=== PATIENT | female | born 1945 | race Caucasian/White ===

== ENCOUNTER 2018-02-14 12:15 | Inpatient (IN) | payer OTHER, MEDICAID ==
[2018-02-14 12:50] LABS: ADD MAN DIFF? NO
[2018-02-14 12:52] LABS: AADO2 Arterial 336.5 mmHg (7.0-24.0); Allen Test ACCEPTAB; Arterial Base Excess -1.3 mmol/L (-3.0-3); Arterial Blood Gas Oxygen Sat 98.7 mmHG (95.0-100.0); Arterial COHb 1.7 % (0.0-3.0); Arterial Fraction of Oxyhgb 96.7 % (93.0-99.0); Arterial HCO3 33.2 mmol/L (22.0-26.0); Arterial MetHb 0.3 % (0.0-1.5); Arterial Total Hemglobin 11.7 g/dl (12.0-18.0); Arterial pCO2 139.3 mmhg (35-45); Blood Gas IEPAP 15; Blood Gas PS 20/5; MODE MASK - BIPAP; Site Right Radial
[2018-02-14 12:56] LABS: ABNORMAL IP MESSAGE 1; BASOPHILS % 0.2 % (0.0-2.0); EOSINOPHILS % 0.2 % (0.0-7.0); HEMATOCRIT 43.5 % (37.0-47.0); HEMOGLOBIN 11.9 g/dl (12.0-16.0); LYMPHOCYTES # 0.6 10^3/ul (0.8-2.9); LYMPHOCYTES % 12.5 % (15.0-51.0); MEAN CORPUSCULAR HGB CONC 27.4 g/dl (32.0-37.0); MEAN CORPUSCULAR VOLUME 106.1 fl (82.0-101.0); MEAN PLATELET VOLUME 10.7 fl (7.4-10.4); MONOCYTE # 0.3 10^3/ul (0.3-0.9); MONOCYTES % 5.7 % (0.0-11.0); NEUTROPHIL # 3.9 10^3/ul (1.6-7.5); NEUTROPHILS % 80.8 % (39.0-77.0); NUCLEATED RED BLOOD CELLS% 0.6 /100WBC (0.0-0.0); PLATELET COUNT 202 10^3/UL (140-415); RED CELL DISTRIBUTION WIDTH 13.2 % (11.5-14.5)
[2018-02-14 12:56] LABS: WHITE BLOOD COUNT 4.9 10^3/ul (4.8-10.8)
[2018-02-14] MEDS: SODIUM CHLORIDE 0.9% 1L BAG IV* (13:05)
[2018-02-14] MEDS: LEVOFLOXACIN 750MG/D5W (PMX) 150 ML IVPB (13:05)
[2018-02-14 13:08] LABS: POSITIVE DIFF @See below
[2018-02-14] MEDS: SOD CHLORIDE 0.9% 1,000 ML IV (13:10)
[2018-02-14 13:12] LABS: INR 0.84; PARTIAL THROMBOPLASTIN TIME 24.3 Sec (23.0-35.0); PROTIME 11.6 Sec (11.9-14.9); PT RATIO 0.9
[2018-02-14 13:16] LABS: LACTIC ACID 0.9 mmol/L (0.5-2.0)
[2018-02-14 13:16] LABS: ALANINE AMINOTRANSFERASE 20 IU/L (13-69); ALBUMIN 3.9 g/dl (3.3-4.9); ALKALINE PHOSPHATASE 72 IU/L (42-121); AMYLASE 69 U/L (11-123); ANION GAP 6 (5-13); ASPARTATE AMINO TRANSFERASE 16 IU/L (15-46); BILIRUBIN,INDIRECT 0.4 mg/dl (0-1.1); BILIRUBIN,TOTAL 0.4 mg/dl (0.2-1.3); BLOOD UREA NITROGEN 50 mg/dl (7-20); CALCIUM 9.1 mg/dl (8.4-10.2); CARBON DIOXIDE 36 mmol/L (21-31); CHLORIDE 97 mmol/L (97-110); GLUCOSE 170 mg/dl (70-220); LIPASE 44 U/L (23-300); POTASSIUM 5.6 mmol/L (3.5-5.1); SODIUM 139 mmol/L (135-144); TOTAL PROTEIN 6.5 g/dl (6.1-8.1)
[2018-02-14 13:27] LABS: TROPONIN-I 0.063 ng/ml (0.000-0.120)
[2018-02-14 13:37] LABS: Allen Test ACCEPTAB; Arterial Base Excess 3.6 mmol/L (-3.0-3); Arterial Blood Gas Oxygen Sat 86.6 mmHG (95.0-100.0); Arterial COHb 2.1 % (0.0-3.0); Arterial Fraction of Oxyhgb 84.5 % (93.0-99.0); Arterial HCO3 34.6 mmol/L (22.0-26.0); Arterial MetHb 0.3 % (0.0-1.5); Arterial Total Hemglobin 11.3 g/dl (12.0-18.0); Blood Gas IEPAP 20/5; Blood Gas PS 15; MODE MASK - BIPAP; Site Right Radial
[2018-02-14 13:48] LABS: ADD UMIC YES; UR ASCORBIC ACID 40 mg/dL (NEGATIVE); UR BACTERIA FEW /HPF (NONE SEEN); UR BILIRUBIN (Dip) NEGATIVE (NEGATIVE); UR BLOOD (Dip) NEGATIVE (NEGATIVE); UR CLARITY CLOUDY (CLEAR); UR COLOR YELLOW (YELLOW); UR GLUCOSE (Dip) NEGATIVE (NEGATIVE); UR KETONES (Dip) NEGATIVE (NEGATIVE); UR LEUKOCYTE ESTERASE (Dip) 2+ Leu/ul (NEGATIVE); UR MUCUS FEW /HPF (NONE SEEN); UR NITRITE (Dip) NEGATIVE (NEGATIVE); UR RBC 1 /HPF (0-5); UR SPECIFIC GRAVITY (Dip) 1.018 (1.003-1.030); UR TOTAL PROTEIN (Dip) 2+ mg/dl (NEGATIVE); UR UROBILINOGEN (Dip) 2+ mg/dL (NEGATIVE); UR WBC 28 /HPF (0-5)
[2018-02-14] MEDS: FUROSEMIDE 40 MG INJ IV (14:23)
[2018-02-14] MEDS: VANCOMYCIN 1 GM (PMX) 250 ML IVPB (14:23)
[2018-02-14 14:45] LABS: AADO2 Arterial 53.9 mmHg (7.0-24.0); Allen Test ACCEPTAB; Arterial Base Excess -1.2 mmol/L (-3.0-3); Arterial Blood Gas Oxygen Sat 92.1 mmHG (95.0-100.0); Arterial COHb 1.8 % (0.0-3.0); Arterial Fraction of Oxyhgb 90.2 % (93.0-99.0); Arterial HCO3 27.7 mmol/L (22.0-26.0); Arterial MetHb 0.3 % (0.0-1.5); Arterial Total Hemglobin 11.1 g/dl (12.0-18.0); Arterial pCO2 69.9 mmhg (35-45); Blood Gas IEPAP 20/5; Blood Gas PS 15; MODE MASK - BIPAP; Site Right Radial
[2018-02-14] MEDS ORDERED: ONDANSETRON 4 MG INJ IV ×2 (15:30→16:30)
[2018-02-14 15:47] LABS: B-TYPE NATRIURETIC PEPTIDE 44800 PG/ML (0-125)
[2018-02-14] MEDS ORDERED: HEPARIN 5,000 UNIT/0.5 ML VIAL SC (16:30)
[2018-02-14] MEDS ORDERED: GLUCOSE GEL 15 GRAM TUBE BUCCAL (16:30)
[2018-02-14] MEDS ORDERED: DEXTROSE 50% 50 ML SYRINGE IV ×2 (16:30)
[2018-02-14] MEDS ORDERED: ACETAMINOPHEN 325 MG TAB PO ×2 (16:30)
[2018-02-14] MEDS: HEPARIN 5,000 UNIT/0.5 ML VIAL SC (16:30)
[2018-02-14] MEDS ORDERED: GLUCOSE GEL 15 GRAM TUBE PO ×2 (16:30)
[2018-02-14] MEDS: BISACODYL 10 MG SUPP PR (16:30)
[2018-02-14] MEDS ORDERED: GLUCAGON 1 MG INJ IM (16:30)
[2018-02-14] MEDS ORDERED: NACL 0.9% 3 ML SYG IV (16:30)
[2018-02-14 17:46] LABS: LACTIC ACID 1.3 mmol/L (0.5-2.0)
[2018-02-14] MEDS: INSULIN ASPART [NOVOLOG] 3 ML PEN SC ×2 (18:00→20:29)
[2018-02-14] MEDS: ALBUTEROL/IPRATROPIUM (NEB) 3 ML AMP INH (19:26)
[2018-02-14] MEDS: ALLOPURINOL 100 MG TAB PO (20:29)
[2018-02-14] MEDS: ATORVASTATIN 40 MG TAB PO (20:29)
[2018-02-14] MEDS ORDERED: LABETALOL HCL 20MG INJ IV (21:30)
[2018-02-14] MEDS: CILOSTAZOL 100 MG TAB PO (22:28)
[2018-02-14] MEDS: INSULIN GLARGINE [LANTus] (100 UNITS/ML) SYG SC (22:48)
[2018-02-15] MEDS: ACETAMINOPHEN 325 MG TAB PO (00:59)
[2018-02-15] MEDS: ALBUTEROL/IPRATROPIUM (NEB) 3 ML AMP INH ×4 (01:21→19:48)
[2018-02-15] MEDS: ACCU-CHEK XX (02:00)
[2018-02-15 05:36] LABS: ADD MAN DIFF? NO
[2018-02-15 05:39] LABS: WHITE BLOOD COUNT 6.1 10^3/ul (4.8-10.8)
[2018-02-15 05:39] LABS: BASOPHILS % 0.2 % (0.0-2.0); EOSINOPHILS # 0.1 10^3/ul (0.0-0.5); EOSINOPHILS % 1.5 % (0.0-7.0); HEMATOCRIT 33.4 % (37.0-47.0); HEMOGLOBIN 9.7 g/dl (12.0-16.0); LYMPHOCYTES # 0.8 10^3/ul (0.8-2.9); LYMPHOCYTES % 13.6 % (15.0-51.0); MEAN CORPUSCULAR VOLUME 99.7 fl (82.0-101.0); MEAN PLATELET VOLUME 10.7 fl (7.4-10.4); MONOCYTE # 0.3 10^3/ul (0.3-0.9); MONOCYTES % 5.4 % (0.0-11.0); NEUTROPHIL # 4.8 10^3/ul (1.6-7.5); PLATELET COUNT 168 10^3/UL (140-415); RED BLOOD COUNT 3.35 10^6/ul (4.20-5.40)
[2018-02-15 06:06] LABS: B-TYPE NATRIURETIC PEPTIDE 32900 PG/ML (0-125)
[2018-02-15 06:20] LABS: ANION GAP 8 (5-13); BLOOD UREA NITROGEN 48 mg/dl (7-20); CALCIUM 9.1 mg/dl (8.4-10.2); CARBON DIOXIDE 36 mmol/L (21-31); CHLORIDE 97 mmol/L (97-110); CREATININE 1.15 mg/dl (0.44-1.00); GLUCOSE 112 mg/dl (70-220); SODIUM 141 mmol/L (135-144)
[2018-02-15] MEDS: INSULIN ASPART [NOVOLOG] 3 ML PEN SC ×4 (08:00→21:00)
[2018-02-15] MEDS ORDERED: HEPARIN 5,000 UNIT/0.5 ML VIAL ×2 (09:16→21:31)
[2018-02-15] MEDS: ALLOPURINOL 100 MG TAB PO ×2 (09:26→23:29)
[2018-02-15] MEDS: FERROUS SULFATE (EC) 325 MG TAB PO (09:26)
[2018-02-15] MEDS: LOSARTAN 50 MG TAB PO (09:26)
[2018-02-15] MEDS: ASCORBIC ACID 500 MG TAB PO (09:26)
[2018-02-15] MEDS: BISACODYL 10 MG SUPP PR (09:26)
[2018-02-15] MEDS: LEVOFLOXACIN 500 MG TAB PO (09:26)
[2018-02-15] MEDS: MAGNESIUM HYDROXIDE 30ML CUP PO (09:27)
[2018-02-15] MEDS: HEPARIN 5,000 UNIT/1 ML VIAL SC ×2 (09:28→21:51)
[2018-02-15] MEDS: HYDROCODONE/APAP (5/325) TAB PO (10:35)
[2018-02-15] MEDS: CILOSTAZOL 100 MG TAB PO ×2 (10:36→23:29)
[2018-02-15] MEDS: FUROSEMIDE 40 MG INJ IV (12:28)
[2018-02-15] MEDS: BARIUM SULF 2% 450 ML BTL (BERRY SMOOTHIE) PO (15:55)
[2018-02-15] MEDS: INSULIN GLARGINE [LANTus] (100 UNITS/ML) SYG SC (21:51)
[2018-02-15] MEDS: ATORVASTATIN 40 MG TAB PO (23:29)
[2018-02-16] MEDS: ACCU-CHEK XX (02:00)
[2018-02-16] MEDS: ALBUTEROL/IPRATROPIUM (NEB) 3 ML AMP INH ×4 (02:07→19:35)
[2018-02-16 05:06] LABS: ADD MAN DIFF? NO
[2018-02-16 05:11] LABS: BASOPHILS % 0.3 % (0.0-2.0); EOSINOPHILS # 0.1 10^3/ul (0.0-0.5); EOSINOPHILS % 1.5 % (0.0-7.0); HEMATOCRIT 29.9 % (37.0-47.0); HEMOGLOBIN 9.1 g/dl (12.0-16.0); LYMPHOCYTES # 1.4 10^3/ul (0.8-2.9); LYMPHOCYTES % 20.6 % (15.0-51.0); MEAN CORPUSCULAR HEMOGLOBIN 29.2 pg (29.0-33.0); MEAN CORPUSCULAR HGB CONC 30.4 g/dl (32.0-37.0); MEAN CORPUSCULAR VOLUME 95.8 fl (82.0-101.0); MEAN PLATELET VOLUME 10.6 fl (7.4-10.4); MONOCYTE # 0.5 10^3/ul (0.3-0.9); MONOCYTES % 7.9 % (0.0-11.0); NEUTROPHIL # 4.7 10^3/ul (1.6-7.5); NEUTROPHILS % 69.4 % (39.0-77.0); PLATELET COUNT 157 10^3/UL (140-415); RED BLOOD COUNT 3.12 10^6/ul (4.20-5.40); RED CELL DISTRIBUTION WIDTH 13.7 % (11.5-14.5)
[2018-02-16 05:11] LABS: WHITE BLOOD COUNT 6.7 10^3/ul (4.8-10.8)
[2018-02-16 05:30] LABS: ANION GAP 5 (5-13); BLOOD UREA NITROGEN 43 mg/dl (7-20); CALCIUM 8.9 mg/dl (8.4-10.2); CARBON DIOXIDE 37 mmol/L (21-31); CHLORIDE 98 mmol/L (97-110); CREATININE 1.01 mg/dl (0.44-1.00); GLUCOSE 120 mg/dl (70-220); POTASSIUM 4.2 mmol/L (3.5-5.1); SODIUM 140 mmol/L (135-144)
[2018-02-16] MEDS: INSULIN ASPART [NOVOLOG] 3 ML PEN SC ×4 (08:00→20:27)
[2018-02-16] MEDS ORDERED: HEPARIN 5,000 UNIT/0.5 ML VIAL ×2 (09:24→20:12)
[2018-02-16] MEDS: MAGNESIUM HYDROXIDE 30ML CUP PO (09:45)
[2018-02-16] MEDS: CILOSTAZOL 100 MG TAB PO ×2 (09:46→20:25)
[2018-02-16] MEDS: LOSARTAN 50 MG TAB PO (09:46)
[2018-02-16] MEDS: ASCORBIC ACID 500 MG TAB PO (09:46)
[2018-02-16] MEDS: ALLOPURINOL 100 MG TAB PO ×2 (09:46→20:25)
[2018-02-16] MEDS: BISACODYL 10 MG SUPP PR (09:46)
[2018-02-16] MEDS: FERROUS SULFATE (EC) 325 MG TAB PO (09:46)
[2018-02-16] MEDS: HEPARIN 5,000 UNIT/1 ML VIAL SC ×2 (09:55→21:18)
[2018-02-16] MEDS: FUROSEMIDE 40 MG TAB PO (11:47)
[2018-02-16] MEDS: FAMOTIDINE 20 MG TAB PO ×2 (11:47→20:25)
[2018-02-16] MEDS: LACTOBACILLUS RHAMNOSUS CAP PO ×2 (11:47→20:25)
[2018-02-16] MEDS: ERTAPENEM SODIUM 1 GM in SOD CHLORIDE 0.9% 100 ML IVPB (12:34)
[2018-02-16] MEDS: HYDROCODONE/APAP (5/325) TAB PO ×2 (12:35→20:25)
[2018-02-16] MEDS: ATORVASTATIN 40 MG TAB PO (20:25)
[2018-02-16] MEDS ORDERED: FAMOTIDINE 20 MG TAB PO (21:00)
[2018-02-16] MEDS: INSULIN GLARGINE [LANTus] (100 UNITS/ML) SYG SC (21:18)
[2018-02-17] MEDS: ALBUTEROL/IPRATROPIUM (NEB) 3 ML AMP INH ×4 (01:22→19:36)
[2018-02-17] MEDS: ACCU-CHEK XX (02:15)
[2018-02-17 05:05] LABS: WHITE BLOOD COUNT 6.4 10^3/ul (4.8-10.8)
[2018-02-17 05:05] LABS: ADD MAN DIFF? NO
[2018-02-17 05:06] LABS: BASOPHILS % 0.5 % (0.0-2.0); EOSINOPHILS # 0.3 10^3/ul (0.0-0.5); EOSINOPHILS % 5.2 % (0.0-7.0); HEMATOCRIT 29.5 % (37.0-47.0); HEMOGLOBIN 8.8 g/dl (12.0-16.0); LYMPHOCYTES # 1.6 10^3/ul (0.8-2.9); LYMPHOCYTES % 24.5 % (15.0-51.0); MEAN CORPUSCULAR HEMOGLOBIN 29.3 pg (29.0-33.0); MEAN CORPUSCULAR HGB CONC 29.8 g/dl (32.0-37.0); MEAN CORPUSCULAR VOLUME 98.3 fl (82.0-101.0); MEAN PLATELET VOLUME 10.7 fl (7.4-10.4); MONOCYTE # 0.5 10^3/ul (0.3-0.9); MONOCYTES % 8.2 % (0.0-11.0); NEUTROPHIL # 3.9 10^3/ul (1.6-7.5); NEUTROPHILS % 61.3 % (39.0-77.0); PLATELET COUNT 139 10^3/UL (140-415); RED CELL DISTRIBUTION WIDTH 13.6 % (11.5-14.5)
[2018-02-17 05:29] LABS: BLOOD UREA NITROGEN 35 mg/dl (7-20); CALCIUM 8.6 mg/dl (8.4-10.2); CHLORIDE 95 mmol/L (97-110); CREATININE 1.01 mg/dl (0.44-1.00); GLUCOSE 138 mg/dl (70-220); POTASSIUM 4.2 mmol/L (3.5-5.1); SODIUM 140 mmol/L (135-144)
[2018-02-17 05:32] LABS: MAGNESIUM 1.8 mg/dl (1.7-2.5)
[2018-02-17 05:51] LABS: ANION GAP 4 (5-13)
[2018-02-17 05:53] LABS: CARBON DIOXIDE 41 mmol/L (21-31)
[2018-02-17] MEDS: INSULIN ASPART [NOVOLOG] 3 ML PEN SC ×3 (08:00→17:14)
[2018-02-17] MEDS: BISACODYL 10 MG SUPP PR (09:00)
[2018-02-17] MEDS ORDERED: HEPARIN 5,000 UNIT/0.5 ML VIAL ×2 (09:12→20:29)
[2018-02-17] MEDS: MAGNESIUM HYDROXIDE 30ML CUP PO (09:34)
[2018-02-17] MEDS: ASCORBIC ACID 500 MG TAB PO (09:34)
[2018-02-17] MEDS: FUROSEMIDE 40 MG TAB PO (09:34)
[2018-02-17] MEDS: LOSARTAN 50 MG TAB PO (09:35)
[2018-02-17] MEDS: LACTOBACILLUS RHAMNOSUS CAP PO ×2 (09:35→21:01)
[2018-02-17] MEDS: ALLOPURINOL 100 MG TAB PO ×2 (09:35→20:51)
[2018-02-17] MEDS: CILOSTAZOL 100 MG TAB PO ×2 (09:35→20:50)
[2018-02-17] MEDS: FAMOTIDINE 20 MG TAB PO ×2 (09:35→20:50)
[2018-02-17] MEDS: FERROUS SULFATE (EC) 325 MG TAB PO (09:36)
[2018-02-17] MEDS: HEPARIN 5,000 UNIT/1 ML VIAL SC ×2 (09:54→21:13)
[2018-02-17] MEDS: ERTAPENEM SODIUM 1 GM in SOD CHLORIDE 0.9% 100 ML IVPB (10:30)
[2018-02-17] MEDS: COLLAGENASE 5 GM (UD JAR) TOP (11:30)
[2018-02-17 12:36] LABS: AADO2 Arterial 23.2 mmHg (7.0-24.0); Allen Test ACCEPTAB; Arterial Base Excess 17.3 mmol/L (-3.0-3); Arterial Blood Gas Oxygen Sat 96.8 mmHG (95.0-100.0); Arterial COHb 1.2 % (0.0-3.0); Arterial Fraction of Oxyhgb 95.3 % (93.0-99.0); Arterial HCO3 43.8 mmol/L (22.0-26.0); Arterial MetHb 0.3 % (0.0-1.5); Arterial Total Hemglobin 9.9 g/dl (12.0-18.0); Arterial pCO2 64.5 mmhg (35-45); MODE NASAL CANNULA; Site Left Radial
[2018-02-17] MEDS: HYDROCODONE/APAP (5/325) TAB PO ×3 (15:02→23:07)
[2018-02-17] MEDS: ATORVASTATIN 40 MG TAB PO (20:50)
[2018-02-17] MEDS: INSULIN GLARGINE [LANTus] (100 UNITS/ML) SYG SC (21:13)
[2018-02-18] MEDS: INSULIN ASPART [NOVOLOG] 3 ML PEN SC ×4 (01:21→17:39)
[2018-02-18] MEDS: ACCU-CHEK XX (02:00)
[2018-02-18] MEDS: ALBUTEROL/IPRATROPIUM (NEB) 3 ML AMP INH ×3 (02:01→14:06)
[2018-02-18] MEDS: HYDROCODONE/APAP (5/325) TAB PO ×2 (03:06→09:38)
[2018-02-18 05:54] LABS: ADD MAN DIFF? NO
[2018-02-18 06:01] LABS: WHITE BLOOD COUNT 6.5 10^3/ul (4.8-10.8)
[2018-02-18 06:01] LABS: BASOPHILS % 0.3 % (0.0-2.0); EOSINOPHILS # 0.4 10^3/ul (0.0-0.5); EOSINOPHILS % 6.5 % (0.0-7.0); HEMATOCRIT 30.8 % (37.0-47.0); LYMPHOCYTES # 1.5 10^3/ul (0.8-2.9); LYMPHOCYTES % 23.7 % (15.0-51.0); MEAN CORPUSCULAR HEMOGLOBIN 29.3 pg (29.0-33.0); MEAN CORPUSCULAR HGB CONC 29.2 g/dl (32.0-37.0); MEAN CORPUSCULAR VOLUME 100.3 fl (82.0-101.0); MEAN PLATELET VOLUME 11.3 fl (7.4-10.4); MONOCYTE # 0.6 10^3/ul (0.3-0.9); MONOCYTES % 8.7 % (0.0-11.0); NEUTROPHIL # 3.9 10^3/ul (1.6-7.5); NEUTROPHILS % 60.2 % (39.0-77.0); RED BLOOD COUNT 3.07 10^6/ul (4.20-5.40); RED CELL DISTRIBUTION WIDTH 13.6 % (11.5-14.5)
[2018-02-18 06:12] LABS: PLATELET COUNT 138 10^3/UL (140-415)
[2018-02-18 06:55] LABS: MAGNESIUM 1.9 mg/dl (1.7-2.5)
[2018-02-18 07:03] LABS: BLOOD UREA NITROGEN 34 mg/dl (7-20); CALCIUM 8.6 mg/dl (8.4-10.2); CHLORIDE 93 mmol/L (97-110); CREATININE 1.03 mg/dl (0.44-1.00); GLUCOSE 144 mg/dl (70-220); POTASSIUM 4.1 mmol/L (3.5-5.1); SODIUM 140 mmol/L (135-144)
[2018-02-18 07:12] LABS: ANION GAP 3 (5-13)
[2018-02-18 07:15] LABS: CARBON DIOXIDE 44 mmol/L (21-31)
[2018-02-18] MEDS ORDERED: HEPARIN 5,000 UNIT/0.5 ML VIAL (09:06)
[2018-02-18] MEDS: LACTOBACILLUS RHAMNOSUS CAP PO (09:16)
[2018-02-18] MEDS: COLLAGENASE 5 GM (UD JAR) TOP (09:16)
[2018-02-18] MEDS: MAGNESIUM HYDROXIDE 30ML CUP PO (09:16)
[2018-02-18] MEDS: CILOSTAZOL 100 MG TAB PO (09:16)
[2018-02-18] MEDS: FERROUS SULFATE (EC) 325 MG TAB PO (09:16)
[2018-02-18] MEDS: BISACODYL 10 MG SUPP PR (09:16)
[2018-02-18] MEDS: ALLOPURINOL 100 MG TAB PO (09:17)
[2018-02-18] MEDS: ASCORBIC ACID 500 MG TAB PO (09:17)
[2018-02-18] MEDS: FUROSEMIDE 20 MG TAB PO (09:18)
[2018-02-18] MEDS: FAMOTIDINE 20 MG TAB PO (09:18)
[2018-02-18] MEDS: LOSARTAN 50 MG TAB PO (09:18)
[2018-02-18] MEDS: HEPARIN 5,000 UNIT/1 ML VIAL SC (09:34)
[2018-02-18] MEDS: ALPRAZOLAM 0.5 MG TAB PO (09:37)
[2018-02-18] MEDS: ERTAPENEM SODIUM 1 GM in SOD CHLORIDE 0.9% 100 ML IVPB (10:30)
== END 2018-02-18 17:53 | DRG 189 ==
LOC: E/R 12:15 → 6WM 15:08
PROC: 5A09357 Assistance with Respiratory Ventilation, Less than 24 Consecutive Hours, Continuous Positive Airway Pressure (ICD-10-PCS; principal; 2018-02-14)
PROC: 4A133R1 Monitoring of Arterial Saturation, Peripheral, Percutaneous Approach (ICD-10-PCS; 2018-02-14)
DX: J96.22 Acute and chronic respiratory failure with hypercapnia (principal); I50.33 Acute on chronic diastolic (congestive) heart failure; I13.0 Hypertensive heart and chronic kidney disease with heart failure and stage 1 through stage 4 chronic kidney disease, or unspecified chronic kidney disease; N39.0 Urinary tract infection, site not specified; E87.4 Mixed disorder of acid-base balance; E66.2 Morbid (severe) obesity with alveolar hypoventilation; L89.152 Pressure ulcer of sacral region, stage 2; B96.20 Unspecified Escherichia coli [E. coli] as the cause of diseases classified elsewhere; D63.8 Anemia in other chronic diseases classified elsewhere; E11.22 Type 2 diabetes mellitus with diabetic chronic kidney disease; N18.3 Chronic kidney disease, stage 3 (moderate); Z68.31 Body mass index [BMI] 31.0-31.9, adult; E11.40 Type 2 diabetes mellitus with diabetic neuropathy, unspecified; K21.9 Gastro-esophageal reflux disease without esophagitis; E78.00 Pure hypercholesterolemia, unspecified; Z74.01 Bed confinement status; Z79.4 Long term (current) use of insulin; Z88.0 Allergy status to penicillin; Z88.2 Allergy status to sulfonamides; Z87.891 Personal history of nicotine dependence
CPT/HCPCS: 36600; 71045; 74176; 80048; 80053; 81001; 82150; 82803; 82962; 83605; 83690; 83735; 83880; 84484; 85025; 85610; 85730; 87040; 87086; 93005; 94640; 94660; 94664; 96374; 96375; 99291-25